=== PATIENT | male | born 1995 | race Caucasian/White ===

== ENCOUNTER 2018-03-16 21:07 | Emergency (ER) | payer OTHER ==
[~2018-03-16] VITALS: Ht 170.2 cm; Wt 74.8 kg
[2018-03-16 21:08] VITALS: Ht 170.2 cm; Wt 74.8 kg
[2018-03-16 21:58] LABS: BASOPHIL % 0.4 % (0-2); PLATELET COUNT 253 x10^3mcL (130-400); RED CELL DISTRIBUTION WIDTH 12.7 % (11.5-14.5)
[2018-03-16 22:10] LABS: CALCIUM 8.6 mg/dL (8.5-10.1); CARBON DIOXIDE 23.3 mmol/L (21-32); CHLORIDE SERUM 106 mmol/L (98-107); GFR1 > 60 mL/min; GLUCOSE SERUM 99 mg/dL (74-106); POTASSIUM SERUM 3.4 mmol/L (3.5-5.1); SODIUM SERUM 143 mmol/L (136-145)
[2018-03-16 22:14] LABS: ALBUMIN 4.3 g/dL (3.4-5.0); ALKALINE PHOSPHATASE 72 U/L (46-116); ALT/SGPT 50 U/L (16-63); AST/SGOT 28 U/L (15-37); BILIRUBIN TOTAL 0.2 mg/dL (0.20-1.00)
[2018-03-17 00:44] LABS: microscopic required? NO
[2018-03-17 00:49] LABS: urine erythrocyte NEGATIVE (NEGATIVE)
[2018-03-17 01:05] LABS: AMPHETAMINE QUAL UR NONE DETECTED (See below)
[2018-03-17 08:29] VITALS: BP 133/63
== END 2018-03-17 08:29 | disposition home or self-care (01) ==
LOC: ED 21:07
PROVIDERS: Emergency Medicine
DX: F10.129 Alcohol abuse with intoxication, unspecified (principal); R40.4 Transient alteration of awareness; Z98.890 Other specified postprocedural states
CPT/HCPCS: G0480; J2405; J7030

== ENCOUNTER 2019-09-01 15:00 | Emergency (ER) | payer MEDICAID ==
[~2019-09-01] VITALS: Ht 172.7 cm; Wt 93.9 kg
[2019-09-01 15:12] VITALS: Ht 172.7 cm; Wt 93.9 kg
[2019-09-01 16:31] VITALS: BP 128/78
== END 2019-09-01 16:31 | disposition home or self-care (01) ==
LOC: ED 15:00
DX: R20.2 Paresthesia of skin (principal); M25.531 Pain in right wrist; M25.532 Pain in left wrist; M54.5 Low back pain; R05 Cough; R03.0 Elevated blood-pressure reading, without diagnosis of hypertension; Z98.890 Other specified postprocedural states

== ENCOUNTER 2019-09-19 21:17 | Emergency (ER) | payer OTHER ==
[~2019-09-19] VITALS: Ht 175.3 cm; Wt 90.7 kg
[2019-09-19 21:26] VITALS: Ht 175.3 cm; Wt 90.7 kg
[2019-09-19 21:52] VITALS: BP 139/93
== END 2019-09-19 21:53 | disposition other institution (70) ==
LOC: ED 21:17
DX: Z02.89 Encounter for other administrative examinations (principal)